=== PATIENT | female | born 1985 | race African-American/Black ===

== ENCOUNTER 2021-03-28 22:17 | Inpatient (IN) | payer OTHER ==
[2021-03-29 00:56] LABS: BASO % 1.1 % (0-2.0); HEMATOCRIT 37.2 % (32.4-45.2); HEMOGLOBIN 12.3 GM/dL (10.7-15.3); LYMPH % 28.2 % (8-40); MCH 27.9 pg (25.7-33.7); MEAN CELL VOLUME 84.5 fl (80-96); MEAN PLT VOLUME 8.2 fl (7.5-11.1); MONO % 4.2 % (3.8-10.2); NEUT % 62.5 % (42.8-82.8); PLATELET COUNT 318 10^3/uL (134-434); RDW 14.8 % (11.6-15.6); WHITE BLOOD COUNT 7.4 K/mm3 (4.0-10.0)
[2021-03-29 01:06] LABS: INR 0.98 (0.83-1.09)
[2021-03-29 01:08] LABS: ACTIVATED PTT 28.3 SECONDS (25.2-36.5)
[2021-03-29 01:16] LABS: ALBUMIN 3.5 g/dl (3.4-5.0); BLOOD UREA NITROGEN 11.7 mg/dL (7-18); CALCIUM 8.9 mg/dL (8.5-10.1)
[2021-03-29 01:20] LABS: CREATININE 0.7 mg/dL (0.55-1.3)
[2021-03-29 01:21] LABS: BILIRUBIN,TOTAL 0.2 mg/dL (0.2-1); TOT PROT 8.2 g/dl (6.4-8.2)
[2021-03-29 02:03] LABS: HCG,QUALITATIVE URINE Negative
[2021-03-29 02:04] LABS: EPI CELLS 30 /uL (0-25.1); HYALINE CASTS 0 /uL (0-3.1); URINE APPEARANCE CLEAR; URINE BACTERIA 347 /uL (0-1359); URINE BILIRUBIN NEGATIVE (NEGATIVE); URINE COLOR YELLOW; URINE GLUCOSE (UA) NEGATIVE (NEGATIVE); URINE KETONE NEGATIVE (NEGATIVE); URINE LEUK ESTERASE 1+ (NEGATIVE); URINE NITRITE NEGATIVE (NEGATIVE); URINE PROTEIN NEGATIVE (NEGATIVE); URINE RBC 5 /uL (0-23.9); URINE UROBILINOGEN 0.2 mg/dL (0.2-1.0); URINE WBC 35 /uL (0-25.8)
[2021-03-29 03:31] VITALS: BMI 37.4
[2021-03-29] MEDS ORDERED: CEFTRIAXONE 1 GM in DEXTROSE 5%-WATER - 50 ML IVPB ONE (05:53)
[2021-03-29] MEDS ORDERED: cefTRIAXone SODIUM 1 GM VIAL ONE (06:37)
[2021-03-29] MEDS ORDERED: DEXTROSE 5%-WATER - 50 ML IVPB ONE (06:37)
[2021-03-29 06:48] LABS: BASO % 0.3 % (0-2.0); EOS % 5.6 % (0-4.5); HEMATOCRIT 34.8 % (32.4-45.2); HEMOGLOBIN 11.5 GM/dL (10.7-15.3); LYMPH % 39.8 % (8-40); MCHC 33.2 g/dl (32.0-36.0); MEAN CELL VOLUME 84.4 fl (80-96); MEAN PLT VOLUME 8.5 fl (7.5-11.1); MONO % 6.8 % (3.8-10.2); NEUT % 47.5 % (42.8-82.8); PLATELET COUNT 305 10^3/uL (134-434); RBC 4.13 M/mm3 (3.60-5.2); RDW 15.1 % (11.6-15.6); WHITE BLOOD COUNT 7.5 K/mm3 (4.0-10.0)
[2021-03-29 06:58] LABS: INR 1.07 (0.83-1.09)
[2021-03-29 06:59] LABS: ACTIVATED PTT 27.4 SECONDS (25.2-36.5)
[2021-03-29 07:23] LABS: CALCIUM 8.5 mg/dL (8.5-10.1)
[2021-03-29 07:24] LABS: ALBUMIN 3.1 g/dl (3.4-5.0); BLOOD UREA NITROGEN 12.2 mg/dL (7-18); MAGNESIUM 1.7 mg/dL (1.8-2.4)
[2021-03-29 07:27] LABS: CREATININE 0.6 mg/dL (0.55-1.3); PHOSPHOROUS 4.6 mg/dL (2.5-4.9)
[2021-03-29 07:28] LABS: BILIRUBIN,TOTAL 0.3 mg/dL (0.2-1)
[2021-03-29 07:29] LABS: TOT PROT 7.2 g/dl (6.4-8.2)
[2021-03-29] MEDS: ENOXAPARIN NA (PORCINE) 40 MG/0.4 ML DISP.SYRIN SQ SCH ×2 (09:16→09:22)
[2021-03-29] MEDS ORDERED: DOXYCYCLINE HYCLATE 100 MG CAPSULE PO ONE (11:45)
[2021-03-29 14:19] VITALS: BP 128/80; PULSE 87; TEMP 97.6
== END 2021-03-29 14:45 | disposition home or self-care (01) | DRG 385 ==
LOC: JER 22:17 → JERBED 03-29 01:29 → J7W 03-29 03:08
PROVIDERS: ADMIT Internal Medicine
DX: N60.02 Solitary cyst of left breast (principal); N64.4 Mastodynia; N39.0 Urinary tract infection, site not specified; E66.9 Obesity, unspecified; Z68.37 Body mass index [BMI] 37.0-37.9, adult
CPT/HCPCS: 36415; 71046-TC-FY; 76642-TC-LT; 80053; 81003; 82962; 83735; 84100; 84703; 85025; 85610; 85730; 93005; 93010; 99285-25; C9803; U0003; U0005